=== PATIENT | male | born 1975 | race Two or more races ===

== ENCOUNTER 2025-02-09 23:30 | Emergency (ER) | payer OTHER ==
[~2025-02-09] VITALS: Ht 188 cm; Wt 102.1 kg
[2025-02-09] MEDS ORDERED: HUMULIN 70100 UNIT/2 IJ (23:55)
[2025-02-10 02:07] LABS: URINE APPEARANCE Cloudy; URINE BILIRRUBIN Small (NEGATIVE); URINE BLOOD Large; URINE COLOR Orange; URINE GLUCOSE Negative (NEGATIVE); URINE KETONE Negative (NEGATIVE); URINE LEUKOCYTE Trace; URINE NITRATE Negative; URINE PROTEIN 30 (NEGATIVE)
[2025-02-10 02:09] LABS: INR 1.23; PARTIAL THROMBOPLASTIN TIME 30.4 SECONDS (22.0-34.0); PROTHROMBIN TIME 13.2 SECONDS (9.0-11.5)
[2025-02-10 02:11] LABS: URINE BACTERIA 78.3 uL (0.0-1933); URINE CAST 6.62 uL (0.0-1.40); URINE RBC 609.7 uL (0.0-20.8); URINE WBC 8.5 uL (0.0-23.2)
[2025-02-10 02:15] LABS: ALBUMIN 3.2 gm/dL (3.4-5.0); BILIRUBIN TOTAL 2.26 mg/dL (0.3-1.2); CALCIUM 8.8 mg/dL (8.5-10.1); CREATININE SERUM 0.88 mg/dL (0.70-1.30); GFR 91.66; GLOBULINA 4.6 G/DL (2.4-3.5); POTASSIUM 4.22 mEq/L (3.5-5.1); TOTAL PROTEIN 7.8 gm/dL (6.4-8.2)
[2025-02-10 02:34] LABS: HEMATOCRIT 42.3 % (39.0-48.0); HEMOGLOBIN 14.5 g/dL (13-16.00); MEAN CELL VOLUME 103.7 fL (80.0-100.00); MEAN CORPUSCULAR HEMOGLOBIN 35.5 pg (27.00-32.0); MEAN CORPUSCULAR HGB CONC 34.3 g/dl (32.0-36.0); RED BLOOD COUNT 4.08 M/uL (4.00-6.00); RED CELL DISTRIBUTION WIDTH 13.5 % (11.5-14.5)
[2025-02-10 02:37] LABS: PLATELET COUNT 107 K/uL (150-450)
[2025-02-10 03:09] LABS: URINE CRYSTALS MANY /HPF
== END 2025-02-10 04:04 ==
LOC: ER 23:33
PROVIDERS: General Practice
DX: R55 Syncope and collapse (principal)